=== PATIENT | male | born 1995 | race African-American/Black ===

== ENCOUNTER 2019-04-02 18:58 | Emergency (ER) | payer SELFPAY ==
[2019-04-02] MEDS ORDERED: SULFAMETHOXAZOLE/TRIMETHOPRIM 800-160 MG TABLET PO ONE (23:48)
--- NOTE | 2019-04-02 23:53 | ER Document Report ---
ED Skin Rash/Insect Bite/Abscs - General Chief Complaint: Insect Bite Stated Complaint: LEFT LEG PAIN Time Seen by Provider: 04/02/19 23:14 TRAVEL OUTSIDE OF THE [place] IN LAST 30 DAYS: No - HPI Notes: This is a 23-year-old gentleman who presents today with a complaint of an insect bite to his left inner thigh. 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 He describes a burning sensation. He denies any itching. He thinks may be an insect bite. He denies any fever or chills. Denies any other complaints. Describes symptoms as mild. There are no obvious aggravating or relieving factors. - Related Data Allergies/Adverse Reactions: No Known Allergies Allergy (Verified 04/02/19 21:06) Past Medical History - Social History Smoking Status: Never Smoker Chew tobacco use (# tins/day): No Frequency of alcohol use: None Drug Abuse: None Family History: Reviewed & Not Pertinent Patient has suicidal ideation: No Patient has homicidal ideation: No Review of Systems - Review of Systems Constitutional: denies: Chills, Fever Cardiovascular: denies: Chest pain Skin: Rash -: Yes All other systems reviewed and negative Physical Exam - Vital signs Vitals: Temp Pulse Resp BP Pulse Ox 98.5 F 100 14 134/77 H 100 04/02/19 19:04 04/02/19 19:04 04/02/19 19:04 04/02/19 19:04 04/02/19 19:04 - Respiratory Respiratory status: No respiratory distress Chest status: Nontender Breath sounds: Normal Chest palpation: Normal - Cardiovascular Rhythm: Regular Heart sounds: Normal auscultation Murmur: No - Genitourinary Inspection: Normal - Psychological Associated symptoms: Normal affect, Normal mood - Skin Skin Temperature: Warm - There is a small area of erythema on the left inner thigh. He feels warm to touch. It is not tender. It may represent an insect bite or an early cellulitis. There is no fluctuance to suggest a drainable abscess. No involvement of the scrotum. Skin Moisture: Dry Skin Color: Normal Course - Re-evaluation Re-evalutation: 04/02/19 23:50 Differential diagnosis includes infected insect bite versus early cellulitis. There is no clinical suspicion for abscess or Vernon's gangrene. Will cover with Bactrim. 04/02/19 23:54 Patient is stable for discharge. Follow-up instructions given. - Vital Signs Vital signs: Temp Pulse Resp BP Pulse Ox 98.5 F 100 14 134/77 H 100 04/02/19 19:04 04/02/19 19:04 04/02/19 19:04 04/02/19 19:04 04/02/19 19:04 Discharge - Discharge Clinical Impression: Insect bite Qualifiers: Encounter type: initial encounter Site of insect bite: thigh Laterality: left Qualified Code(s): S70.362A - Insect bite (nonvenomous), left thigh, initial encounter; W57.XXXA - Bitten or stung by nonvenomous insect and other nonvenomous arthropods, initial encounter Condition: Good Disposition: HOME, SELF-CARE Instructions: Insect Bites ([facility]), Cellulitis ([facility]) Additional Instructions: Return if worsening swelling, fever, drainage or concerns. Prescriptions: Sulfamethoxazole/Trimethoprim [Bactrim Ds Tablet] 1 tab PO BID 10 Days #20 tablet Referrals: [facility] [NO LOCAL MD] - Follow up in 3-5 days
[2019-04-03 00:06] VITALS: BP 113/75
== END 2019-04-03 00:06 | disposition home or self-care (01) ==
LOC: ER 18:58
DX: S70.362A Insect bite (nonvenomous), left thigh, initial encounter (principal); W57.XXXA Bitten or stung by nonvenomous insect and other nonvenomous arthropods, initial encounter
CPT/HCPCS: 99281